=== PATIENT | male | born 1990 | race Caucasian/White ===

== ENCOUNTER 2018-04-09 12:43 | Emergency (ER) | payer SELFPAY ==
[~2018-04-09] VITALS: Ht 185.4 cm; Wt 70.3 kg
--- NOTE | 2018-04-09 13:24 | ED Abdominal Pain ---
General Chief Complaint: -Male Stated Complaint: LOWER BACK PAIN/VOMITING/POSS KIDNEY STONE Nursing Triage Note: C/O L FLANK PAIN FOR 3 DAYS PMH OF KIDNEY STONES. Sepsis Screen: No Definite Risk Source of Information: Patient Exam Limitations: No Limitations History of Present Illness Date Seen by Provider: Apr 09, 2018 Time Seen by Provider: 13:21 Initial Comments 57-year-old white male presents with a complaint of left flank pain for the last 3 days similar to his previous kidney stone episodes. Patient has had associated nausea and vomiting. Patient is having severe sharp left flank pain. Patient denies fever or chills, headache or photophobia, cough or shortness of breath, palpitations or chest pain. Allergies and Home Medications Allergies Coded Allergies: No Known Drug Allergies (Unverified , 04/09/18) Home Medications No Active Prescriptions or Reported Meds Patient Home Medication List Home Medication List Reviewed: Yes Review of Systems Constitutional: No chills, No fever EENTM: No Blurred Vision Respiratory: Denies Cough Cardiovascular: Denies Chest Pain Gastrointestinal: Abdominal Pain (left flank) Genitourinary: Denies Burning, Denies Frequency; Flank Pain Musculoskeletal: No back pain Skin: No rash Psychiatric/Neurological: No Symptoms Reported Endocrine: No Symptoms Reported Hematologic/Lymphatic: No Symptoms Reported Past Wntdkic-Zlratm-Dbtteq Hx Past Med/Social Hx: Reviewed Nursing Past Med/Soc Hx Patient Social History Alcohol Use: Denies Use Recreational Drug Use: No Smoking Status: Current Someday Smoker Recent Foreign Travel: No Contact w/Someone Who Travel: No Recent Infectious Disease Expo: No Past Medical History Surgeries: Yes (TESTICULAR TORSION) Respiratory: No Cardiac: No Kidney Stones Gastrointestinal: No Musculoskeletal: No Endocrine: No HEENT: No Cancer: No Psychosocial: No Blood Disorders: No Physical Exam Vital Signs Vital Signs - First Documented 04/09/18 12:47 Temp 97.6 Pulse 66 Resp 18 B/P (MAP) 141/84 (103) Pulse Ox 98 O2 Delivery Room Air Capillary Refill : Less Than 3 Seconds General Appearance: WD/WN, mild distress HEENT: normal ENT inspection Neck: normal inspection Respiratory: lungs clear Cardiovascular: regular rate, rhythm Gastrointestinal: normal bowel sounds, non tender, soft Extremities: normal range of motion, non-tender, normal inspection Back: normal inspection, CVA tenderness (L) Neurologic/Psychiatric: no motor/sensory deficits, alert, normal mood/affect, oriented x 3 Skin: normal color, warm/dry Progress/Results/Core Measures Results/Orders Lab Results Laboratory Tests Test 04/09/18 13:03 04/09/18 13:28 Range/Units Urine Color YELLOW Urine Clarity CLEAR Urine pH 6 5-9 Urine Specific [place] 1.010 L 1.016-1.022 Urine Protein NEGATIVE NEGATIVE Urine Glucose (UA) NEGATIVE NEGATIVE Urine Ketones NEGATIVE NEGATIVE Urine Nitrite NEGATIVE NEGATIVE Urine Bilirubin NEGATIVE NEGATIVE Urine Urobilinogen NORMAL NORMAL MG/DL Urine Leukocyte Esterase 1+ H NEGATIVE Urine RBC (Auto) 4+ H NEGATIVE Urine RBC 0-2 /HPF Urine WBC 0-2 /HPF Urine Squamous Epithelial Cells 5-10 /HPF Urine Crystals NONE /LPF Urine Bacteria NEGATIVE /HPF Urine Casts NONE /LPF Urine Mucus NEGATIVE /LPF Urine Culture Indicated NO White Blood Count 6.6 4.3-11.0 10^3/uL Red Blood Count 5.08 4.35-5.85 10^6/uL Hemoglobin 14.3 13.3-17.7 G/DL Hematocrit 42 40-54 % Mean Corpuscular Volume 83 80-99 FL Mean Corpuscular Hemoglobin 28 25-34 PG Mean Corpuscular Hemoglobin Concent 34 32-36 G/DL Red Cell Distribution Width 13.8 10.0-14.5 % Platelet Count 197 130-400 10^3/uL Mean Platelet Volume 9.6 7.4-10.4 FL Neutrophils (%) (Auto) 56 42-75 % Lymphocytes (%) (Auto) 29 12-44 % Monocytes (%) (Auto) 9 0-12 % Eosinophils (%) (Auto) 5 0-10 % Basophils (%) (Auto) 1 0-10 % Neutrophils # (Auto) 3.6 1.8-7.8 X 10^3 Lymphocytes # (Auto) 1.9 1.0-4.0 X 10^3 Monocytes # (Auto) 0.6 0.0-1.0 X 10^3 Eosinophils # (Auto) 0.3 0.0-0.3 10^3/uL Basophils # (Auto) 0.1 0.0-0.1 10^3/uL Sodium Level 140 135-145 MMOL/L Potassium Level 4.4 3.6-5.0 MMOL/L Chloride Level 105 98-107 MMOL/L Carbon Dioxide Level 28 21-32 MMOL/L Anion Gap 7 5-14 MMOL/L Blood Urea Nitrogen 8 7-18 MG/DL Creatinine 0.82 0.60-1.30 MG/DL Estimat Glomerular Filtration Rate > 60 BUN/Creatinine Ratio 10 Glucose Level 95 70-105 MG/DL Calcium Level 9.7 8.5-10.1 MG/DL Total Bilirubin 0.7 0.1-1.0 MG/DL Aspartate Amino Transf (AST/SGOT) 15 5-34 U/L Alanine Aminotransferase (ALT/SGPT) 11 0-55 U/L Alkaline Phosphatase 82 40-136 U/L Total Protein 7.2 6.4-8.2 GM/DL Albumin 4.6 H 3.2-4.5 GM/DL My Orders Orders - SANTA LARSON MD Ct Abd/Pelvis Wo(Kidney Stone) (04/09/18 13:19) Cbc With Automated Diff (04/09/18 13:19) Comprehensive Metabolic Panel (04/09/18 13:19) Ua Culture If Indicated (04/09/18 13:19) Fentanyl Injection (Sublimaze Injection (04/09/18 13:30) Ondansetron Injection (Zofran Injectio (04/09/18 13:30) Ketorolac Injection (Toradol Injection) (04/09/18 14:30) Medications Given in ED Current Medications Medications Dose Ordered Sig/Farheen Route Start Time Stop Time Status Last Admin Dose Admin Fentanyl Citrate 50 mcg ONCE ONCE IVP 04/09/18 13:30 04/09/18 13:31 DC 04/09/18 13:33 50 MCG Ketorolac Tromethamine 30 mg ONCE ONCE IVP 04/09/18 14:30 04/09/18 14:31 DC 04/09/18 14:25 30 MG Ondansetron HCl 4 mg ONCE ONCE IVP 04/09/18 13:30 04/09/18 13:31 DC 04/09/18 13:32 4 MG Vital Signs/I&O 04/09/18 12:47 Temp 97.6 Pulse 66 Resp 18 B/P (MAP) 141/84 (103) Pulse Ox 98 O2 Delivery Room Air Blood Pressure Mean: 103 Progress Progress Note : Time: 14:[address] demonstrated no evidence of a kidney stone. Patient's laboratory evaluation demonstrated 4+ hematuria on his UA. This may be suggestive of a passed kidney stone. Departure Impression Primary Impression: Hematuria Qualified Codes: R31.9 - Hematuria, unspecified Disposition: 01 HOME, SELF-CARE Condition: Improved Departure-Patient Inst. Decision time for Depature: 14:53 Referrals: [facility] [place]IC[place] (PCP) Primary Care Physician Patient Instructions: Blood in the Urine (Hematuria) in Adults Scripts No Active Prescriptions or Reported Meds SANTA LARSON MD Apr 09, 2018 13:23
[2018-04-09] MEDS ORDERED: fentaNYL INJECTION 100 MCG/2 ML AMP IVP ONE (13:30)
[2018-04-09] MEDS ORDERED: ONDANSETRON 4 MG/2 ML (SDV) Z0FRAN IVP ONE (13:30)
[2018-04-09 13:35] LABS: BASOPHILS # (AUTO) 0.1 10^3/uL (0.0-0.1); BASOPHILS % (AUTO) 1 % (0-10); EOSINOPHILS # (AUTO) 0.3 10^3/uL (0.0-0.3); EOSINOPHILS % (AUTO) 5 % (0-10); HEMATOCRIT 42 % (40-54); HEMOGLOBIN 14.3 G/DL (13.3-17.7); LYMPHOCYTES # (AUTO) 1.9 X 10^3 (1.0-4.0); LYMPHOCYTES % (AUTO) 29 % (12-44); MEAN CORPUSCULAR HEMOGLOBIN 28 PG (25-34); MEAN CORPUSCULAR HGB CONC 34 G/DL (32-36); MEAN CORPUSCULAR VOLUME 83 FL (80-99); MEAN PLATELET VOLUME 9.6 FL (7.4-10.4); MONOCYTES # (AUTO) 0.6 X 10^3 (0.0-1.0); MONOCYTES % (AUTO) 9 % (0-12); NEUTROPHILS # (AUTO) 3.6 X 10^3 (1.8-7.8); NEUTROPHILS % (AUTO) 56 % (42-75); PLATELET COUNT 197 10^3/uL (130-400); RED BLOOD COUNT 5.08 10^6/uL (4.35-5.85); RED CELL DISTRIBUTION WIDTH 13.8 % (10.0-14.5); WHITE BLOOD COUNT 6.6 10^3/uL (4.3-11.0)
[2018-04-09 13:37] LABS: BILIRUBIN,URINE NEGATIVE (NEGATIVE); CLARITY,URINE CLEAR; COLOR,URINE YELLOW; GLUCOSE, URINE (UA) NEGATIVE (NEGATIVE); KETONES,URINE NEGATIVE (NEGATIVE); LEUKOCYTE ESTERASE ,URINE 1+ (NEGATIVE); NITRITE,URINE NEGATIVE (NEGATIVE); PH,URINE 6 (5-9); PROTEIN,URINE NEGATIVE (NEGATIVE); UROBILINOGEN,URINE NORMAL (NORMAL)
[2018-04-09 13:52] LABS: BACTERIA,URINE NEGATIVE /HPF; RBC,URINE 0-2 /HPF; WBC,URINE 0-2 /HPF
[2018-04-09 13:54] LABS: ALANINE AMINOTRANSFERASE 11 U/L (0-55); ALBUMIN 4.6 GM/DL (3.2-4.5); ALKALINE PHOSPHATASE 82 U/L (40-136); BILIRUBIN,TOTAL 0.7 MG/DL (0.1-1.0); BUN/CREATININE RATIO 10; CALCIUM 9.7 MG/DL (8.5-10.1); CARBON DIOXIDE 28 MMOL/L (21-32); CHLORIDE 105 MMOL/L (98-107); CREATININE SERUM 0.82 MG/DL (0.60-1.30); GFR ESTIMATED > 60; GLUCOSE 95 MG/DL (70-105); POTASSIUM 4.4 MMOL/L (3.6-5.0); SODIUM 140 MMOL/L (135-145); TOTAL PROTEIN 7.2 GM/DL (6.4-8.2)
--- NOTE | 2018-04-09 14:07 | Diagnostic Imaging Report ---
PROCEDURE: CT urinary tract, rule out kidney stone. TECHNIQUE: Multiple contiguous axial images were obtained through the abdomen and pelvis without the use of intravenous contrast. INDICATION: Left posterior abdominal pain radiating anteriorly with hematuria. COMPARISON: None. FINDINGS: The lung bases are clear. The heart is normal in size. No focal hepatic lesions are seen. The spleen, pancreas, and adrenal glands are unremarkable on this noncontrast study. No renal calculi or hydronephrosis is seen bilaterally. The kidneys have an unremarkable noncontrast appearance. The bowel loops are nondistended without evidence of obstruction. The appendix is normal. Moderate stool seen in the colon. No free fluid or free air seen. No acute osseous abnormality seen. IMPRESSION: 1. No renal calculi or hydronephrosis is seen. 2. Moderate stool in the colon, please correlate with any history of constipation. Dictated by: Dictated on workstation # [id number]
[2018-04-09] MEDS ORDERED: KETOROLAC 30 MG/ML VIAL IVP ONE (14:30)
[2018-04-09 15:18] VITALS: BP 0/0
--- OUTSIDE RECORDS SUMMARY | 2018-04-09 16:43 | XMS REPORT ---
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 Info Not Available Non Drug Allergy Problems Problem Type Condition Code Onset Dates Condition Status Assessment Left arm cellulitis L03.114 Active Assessment Left arm pain M79.602 Active Medications Medication Code System Code Instructions Start Date End Date Status Dosage PredniSONE [facility] [address]-51 20 MG Orally 3 tablets x 3 days, 2 tablets x 3 days, 1 tablet x 3 days Aug 12, 2016 Aug 21, 2016 as directed Bactrim DS [facility] [address]-60 800-160 MG Orally Twice a day Aug 12, 2016 Aug 22, 2016 1 tablet Tramadol HCl [facility] [address]-83 50 MG Orally every 6 hrs Aug 12, 2016 Aug 17, 2016 1 tablet as needed Procedures Procedure Coding System Code Date Office Visit, Est Pt., Level 3 CPT-4 06430 Aug 12, 2016 Vital Signs Date/Time: Aug 12, 2016 Cardiac Monitoring Heart Rate 80 bpm Weight 139.0 lbs Height 72.5 in BMI 18.59 Index Blood Pressure Diastolic 70 mmHg Blood Pressure Systolic 112 mmHg Results No Known Results Summary Purpose [employer] Submission
== END 2018-04-09 15:18 | disposition home or self-care (01) ==
LOC: ER 12:45
DX: R31.9 Hematuria, unspecified (principal); F17.200 Nicotine dependence, unspecified, uncomplicated; Z87.442 Personal history of urinary calculi
CPT/HCPCS: 36415; 74176; 80053; 81000; 85025; 96374; 96375

== ENCOUNTER 2019-06-13 11:56 | Emergency (ER) | payer SELFPAY ==
[~2019-06-13] VITALS: Ht 185.4 cm; Wt 70.3 kg
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
[2019-06-13] MEDS ORDERED: HYDR-3820 (12:23)
[2019-06-13] MEDS ORDERED: METHOCARBAMOL 750 MG (ROBAXIN) TAB PO ONE (12:30)
[2019-06-13] MEDS ORDERED: IBUPROFEN 800 MG (MOTRIN) TAB PO ONE (12:30)
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
[2019-06-13 13:02] VITALS: BP 134/94
== END 2019-06-13 13:02 | disposition home or self-care (01) ==
LOC: EDUNIT# 11:56 → ER 11:57
DX: S13.9XXA Sprain of joints and ligaments of unspecified parts of neck, initial encounter (principal); F41.9 Anxiety disorder, unspecified; Z87.442 Personal history of urinary calculi; V43.62XA Car passenger injured in collision with other type car in traffic accident, initial encounter
CPT/HCPCS: 72125

== ENCOUNTER 2019-09-04 14:06 | Emergency (ER) | payer SELFPAY ==
[~2019-09-04] VITALS: Ht 185.4 cm; Wt 68.0 kg
[~2019-09-04 14:06] MED LIST: HYDR-3820
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
--- NOTE | 2019-09-04 14:55 | Diagnostic Imaging Report ---
PROCEDURE: CT head without contrast. TECHNIQUE: Multiple contiguous axial images were obtained through the brain without the use of intravenous contrast. Auto Exposure Controls were utilized during the CT exam to meet ALARA standards for radiation dose reduction. INDICATION: Posterior head injury. COMPARISON: None. FINDINGS: No intracranial hemorrhage, mass effect, hydrocephalus, or extra-axial fluid collections. No CT evidence of a territorial infarction. Osseous structures are intact. The mastoids are clear. Mucosal thickening in the partially visualized ethmoid and left maxillary sinuses. IMPRESSION: 1. No acute intracranial CT findings. 2. Mucosal thickening in the left ethmoid and maxillary sinuses is partially visualized. Dictated by: Dictated on workstation # [id number]
[2019-09-04 15:40] VITALS: BP 116/73
== END 2019-09-04 15:40 | disposition home or self-care (01) ==
LOC: EDUNIT# 14:06 → ER 14:07
DX: S06.0X0A Concussion without loss of consciousness, initial encounter (principal); S00.03XA Contusion of scalp, initial encounter; F41.9 Anxiety disorder, unspecified; Z87.442 Personal history of urinary calculi; W51.XXXA Accidental striking against or bumped into by another person, initial encounter
CPT/HCPCS: 70450

== ENCOUNTER 2021-02-13 14:34 | Emergency (ER) | payer MEDICAID ==
[~2021-02-13] VITALS: Ht 185.5 cm; Wt 68.0 kg
[~2021-02-13 14:34] MED LIST changes: +ACHYD1T; -HYDR-3820
[2021-02-13 14:39] VITALS: BP 129/71
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
--- NOTE | 2021-02-13 15:06 | Diagnostic Imaging Report ---
INDICATION: Right hand injury. Three views of the right hand show no fracture, dislocation or other acute abnormalities. IMPRESSION: Negative right hand. Dictated by: Dictated on workstation # [id number]
== END 2021-02-13 15:12 | disposition home or self-care (01) ==
LOC: EDUNIT# 14:34 → ER 14:36
DX: S60.221A Contusion of right hand, initial encounter (principal); W20.8XXA Other cause of strike by thrown, projected or falling object, initial encounter
CPT/HCPCS: 73130